=== PATIENT | male | born 2000 | race Caucasian/White ===

== ENCOUNTER 2021-07-03 10:22 | Emergency (ER) | payer OTHER ==
[~2021-07-03] VITALS: Ht 190.5 cm; Wt 85.5 kg
[2021-07-03 12:15] VITALS: BP 98/54
== END 2021-07-03 12:49 | disposition home or self-care (01) ==
LOC: M ED 10:22
DX: R55 Syncope and collapse (principal); S50.12XA Contusion of left forearm, initial encounter; W00.0XXA Fall on same level due to ice and snow, initial encounter; Y92.89 Other specified places as the place of occurrence of the external cause; Y99.0 Civilian activity done for income or pay; Z91.018 Allergy to other foods